=== PATIENT | female | born 1975 | race Caucasian/White ===

== ENCOUNTER 2017-08-30 22:56 | Emergency (ER) | payer OTHER, SELFPAY ==
[2017-08-31] MEDS ORDERED: HYDROcodone/Acetaminophen 10/325 mg Tablet ONE (00:31)
[2017-08-31] MEDS ORDERED: AMOXicillin 250 MG CAP ONE (00:31)
[2017-08-31] MEDS ORDERED: cefTRIAXone\\ROCEPHIN 1 GM VIAL ONE (00:31)
[2017-08-31] MEDS ORDERED: Phenergan/Codeine 10-6.25mg/5ml UDCUP ONE (00:31)
[2017-08-31] MEDS ORDERED: diphenhydrAMINE 25 MG CAP ONE (00:31)
== END 2017-08-31 00:50 | disposition home or self-care (01) ==
LOC: MADERS 22:56
DX: J20.9 Acute bronchitis, unspecified (principal); F17.210 Nicotine dependence, cigarettes, uncomplicated
CPT/HCPCS: 96372; J0696; J2001

== ENCOUNTER 2017-09-04 09:11 | Emergency (ER) | payer SELFPAY | END 2017-09-04 09:30 | disposition home or self-care (01) | LOC: MADERS 09:11 | DX: J01.90 Acute sinusitis, unspecified (principal); F17.210 Nicotine dependence, cigarettes, uncomplicated | CPT/HCPCS: 99283 ==

== ENCOUNTER 2017-10-22 19:44 | Emergency (ER) | payer SELFPAY ==
--- NOTE | 2017-10-22 21:26 | RAD ---
RADIOGRAPH RIGHT ANKLE 3 VIEWS: DATE: 10/22/17 TIME: 8:39 p.m. HISTORY: 42-year-old female with nontraumatic pain and swelling of the right ankle and foot of unknown cause. FINDINGS: There is diffuse soft tissue edema of the ankle, especially medially. Ankle mortise is symmetrical. T alar dome is maintained. No high grade DJD. No fracture or dislocation. There is no permeative lesion . There is no periosteal elevation. IMPRESSION: 1. Soft tissue edema of the ankle. 2. No destructive osseous lesion. POS: [facility]
[2017-10-22] MEDS ORDERED: traMADol HCl 50 MG TAB ONE (21:28)
== END 2017-10-22 21:34 | disposition home or self-care (01) ==
LOC: MADERS 19:44
DX: S90.31XA Contusion of right foot, initial encounter (principal); F17.210 Nicotine dependence, cigarettes, uncomplicated; W20.8XXA Other cause of strike by thrown, projected or falling object, initial encounter

== ENCOUNTER 2018-01-11 13:02 | Emergency (ER) | payer SELFPAY ==
[~2018-01-11 13:02] MED LIST: Donnatal Elixir 16.2 MG/5 ML UDCUP ONE; Iopamidol 370 76% 100 ML VIAL ONE; Sodium Chloride 0.9% 1,000 ML BAG ONE
[2018-01-11] MEDS ORDERED: Ondansetron HCl/PF 4 MG/2 ML Vial ONE ×2 (14:09→18:35)
[2018-01-11] MEDS ORDERED: Morphine 10 MG/ML VIAL ONE (14:09)
[2018-01-11 14:17] LABS: #Basophils 0.1 thou/uL (0.0-0.2); #Eosinphils 0.2 thou/uL (0.0-0.7); #Lymphocytes 0.8 thou/uL (1.20-3.40); #Monocytes 0.5 thou/uL (0.11-0.59); #Neutrophils 12.6 thou/uL (1.40-6.50); %Basophils 0.4 % (0.0-1.0); %Eosinophils 1.7 % (0.0-10.0); %Lymphocytes 5.8 % (21.0-51.0); %Monocytes 3.5 % (0.0-10.0); %Neutrophils 88.5 % (42.0-75.0); Hemoglobin 13.7 g/dL (12.0-16.0); Mean Corpuscular HGB CONC 32.2 g/dL (32.0-36.0); Mean Corpuscular Hemoglobin 26.5 pg (27.0-31.0); Mean Corpuscular Volume 82.4 fL (78.0-98.0); Mean Platelet Volume 8.2 fL (7.4-10.4); Platelet Count 231 thou/uL (130-400); RBC Distribution Width 15.2 % (11.5-14.5); Red Blood Cell (RBC) Count 5.17 mill/uL (4.20-5.40); White Blood Cell (WBC) Count 14.3 thou/uL (4.8-10.8)
[2018-01-11 14:26] LABS: BHCG - Serum Negative (NEGATIVE); Pregs Control Background? CLEAR/WHITE (CLR/WHITE); Pregs Control Bar Appear? YES (CONTROL BAR)
[2018-01-11 14:27] LABS: Bilirubin Negative (Negative); Blood, Urine Trace (Negative); Clarity Clear (Clear); Glucose, Urine (Dipstick) Negative (Negative); Leukocyte Negative (Negative); Nitrite Negative (Negative); Protein, Urine (Dipstick) Trace mg/dL (Neg-Trace); Specific Gravity, Urine 1.025 (1.005-1.030); Urobilinogen 0.2 mg/dL (0.2-1.0); pH, Urine 5.5 (5.0-9.0)
[2018-01-11 14:31] LABS: Bacteria/HPF Rare-Few HPF (None Seen); RBC/HPF 0-3 HPF (0-3); WBC/HPF 0-3 HPF (0-3)
[2018-01-11 14:35] LABS: ALT (SGPT) 17 U/L (8-55); AST (SGOT) 14 U/L (5-34); Albumin 4.1 g/dL (3.5-5.0); Alkaline Phosphatase 87 U/L (40-150); Anion Gap 19 mmol/L (10-20); BUN (Urea Nitrogen) 14 mg/dL (7.0-18.7); Bilirubin, Total 0.4 mg/dL (0.2-1.2); Calc. Creatinine Clearance 0 mL/min (70-130); Carbon Dioxide 13 mmol/L (22-29); Chloride 108 mmol/L (98-107); Estimated GFR-MDRD 73; Globulin 3.4 g/dL (2.4-3.5); Glucose 97 mg/dL (70-105); Lipase 28 U/L (8-78); Potassium 4.6 mmol/L (3.5-5.1); Protein, Total 7.5 g/dL (6.0-8.3); Sodium 135 mmol/L (136-145)
--- NOTE | 2018-01-11 15:22 | ULT ---
ULTRASOUND GALLBLADDER RIGHT UPPER QUADRANT: Date: 01/11/18 HISTORY: Epigastric pain. COMPARISON: CT from 2010. TECHNIQUE: Real-time Pham scale and color evaluation of the right upper quadrant of the abdomen performed. FINDINGS: Pancreas is poorly seen. Visualized portion of the aorta is unremarkable. Increased hepatic echotextu re. Common bile duct is normal, measuring less than 3.0 mm. Gallbladder wall thickness is normal. No peggy cholecystic fluid. No cholelithiasis. IMPRESSION: 1. No gallbladder pathology. 2. Prior right nephrectomy. 3. Increased hepatic echotexture suggesting steatosis. POS: [facility]
[2018-01-11] MEDS ORDERED: Morphine 4 MG/ML VIAL ONE ×2 (16:09→18:35)
[2018-01-11 17:08] LABS: pH (venous) 7.2 (7.32-7.43)
[2018-01-11 17:09] LABS: Base Excess 8.5 mEq/L (-2.0 to +3.0); Hemoglobin (Hb) 13.1 g/dL (11.7-15.5)
--- NOTE | 2018-01-11 17:16 | CT ---
CT ABDOMEN AND PELVIS WITH IV CONTRAST: INDICATIONS: History of epigastric abdominal pain. COMPARISON: Prior CT abdomen and pelvis without contrast, dated 04/22/2011. FINDINGS: The lung bases are clear. There is an area of focal fatty infiltration suspected near the falciform ligament. No additional fo grisel hepatic lesion is evident. The spleen is enlarged, measuring 15.2 cm. This is slightly more prominent than seen on the comparis on examination. The right kidney is surgically absent. The right adrenal gland reveals no definite acute abnormality. There is a small adrenal myelolipoma involving the medial limb of the left adrena l gland, measuring 8 mm. The left kidney is normal appearing. There is suggested wall thickening involving the distal gastric antrum, which may be related to under -distention. There are numerous fluid-filled loops of nondilated small bowel in the abdomen. There is a normal ap pendix in the right lower quadrant. There is fluid present within the region of the colon, which can be seen with diarrheal states. There is a peripherally enhancing follicle within the left adnexa, likely reflecting a involuting fol licle. The bladder, rectum, and perirectal soft tissues are unremarkable. No definite acute osseous abnormality is evident. IMPRESSION: 1. Some mild wall thickening involving the distal gastric antrum can be seen with gastritis. This c ould be related to peptic ulcer disease. Other etiologies, such as irritable bowel disease, felt to be less likely. There is nonspecific fluid distention of loops of small and large bowel, which can be seen with Enter ocolitis. 2. Small focal area of fatty infiltration near the falciform ligament. 3. Worsening mild splenomegaly. 4. Myelolipoma of the left adrenal gland, measuring 8 mm. 5. Right nephrectomy. 6. Involuting cyst in the left adnexa, measuring 1 cm. POS: [facility]
[2018-01-11 17:41] LABS: Anion Gap 18 mmol/L (10-20); BUN (Urea Nitrogen) 12 mg/dL (7.0-18.7); Calc. Creatinine Clearance 0 mL/min (70-130); Calcium 7.9 mg/dL (7.8-10.44); Carbon Dioxide 16 mmol/L (22-29); Chloride 110 mmol/L (98-107); Estimated GFR-MDRD 83; Glucose 87 mg/dL (70-105); Potassium 4.8 mmol/L (3.5-5.1); Sodium 139 mmol/L (136-145)
[2018-01-11] MEDS ORDERED: Donnatal Elixir 16.2 MG/5 ML UDCUP ONE (18:35)
[2018-01-11] MEDS ORDERED: Mag-Al Plus 1200 MG/1200 MG/120 MG/30 ML UDCUP ONE (18:36)
[2018-01-11] MEDS ORDERED: Lidocaine Viscous Sol 2% 15 ml UD Cup ONE (18:36)
== END 2018-01-11 19:40 | disposition short-term general hospital (02) ==
LOC: MADERS 13:02
DX: E87.2 Acidosis (principal); J45.909 Unspecified asthma, uncomplicated; F17.210 Nicotine dependence, cigarettes, uncomplicated
CPT/HCPCS: 74177; 76705; 80053; 81003; 81015; 82805; 83605; 83690; 84703; 85025; 96361; 96374; 96375; 96376; J2270; J2405; J7050

== ENCOUNTER 2018-07-21 12:52 | Emergency (ER) | payer SELFPAY, OTHER ==
[2018-07-21 14:21] LABS: #Basophils 0.1 thou/uL (0.0-0.2); #Eosinphils 0.4 thou/uL (0.0-0.7); #Lymphocytes 3.4 thou/uL (1.20-3.40); #Monocytes 0.5 thou/uL (0.11-0.59); #Neutrophils 7.3 thou/uL (1.40-6.50); %Basophils 0.9 % (0.0-1.0); %Eosinophils 3.7 % (0.0-10.0); %Lymphocytes 28.8 % (21.0-51.0); %Monocytes 4.3 % (0.0-10.0); %Neutrophils 62.4 % (42.0-75.0); Hemoglobin 13.4 g/dL (12.0-16.0); Mean Corpuscular HGB CONC 31.4 g/dL (32.0-36.0); Mean Corpuscular Hemoglobin 26.9 pg (27.0-31.0); Mean Corpuscular Volume 85.9 fL (78.0-98.0); Mean Platelet Volume 8.8 fL (7.4-10.4); Platelet Count 270 thou/uL (130-400); RBC Distribution Width 15.3 % (11.5-14.5); Red Blood Cell (RBC) Count 4.99 mill/uL (4.20-5.40); White Blood Cell (WBC) Count 11.7 thou/uL (4.8-10.8)
[2018-07-21 14:26] LABS: Bilirubin Negative (Negative); Blood, Urine Trace (Negative); Clarity Clear (Clear); Glucose, Urine (Dipstick) Negative (Negative); Leukocyte Negative (Negative); Nitrite Negative (Negative); Protein, Urine (Dipstick) Negative (Neg-Trace); RBC/HPF 0-3 HPF (0-3); Specific Gravity, Urine 1.025 (1.005-1.030); Urobilinogen 0.2 mg/dL (0.2-1.0); WBC/HPF 0-3 HPF (0-3); pH, Urine 5.5 (5.0-9.0)
[2018-07-21 14:27] LABS: Bacteria/HPF Rare-Few HPF (None Seen); Squamous Epithelial 0-3 HPF (0-3)
[2018-07-21 14:34] LABS: BHCG - Serum Negative (NEGATIVE); Pregs Control Background? CLEAR/WHITE (CLR/WHITE); Pregs Control Bar Appear? YES (CONTROL BAR)
[2018-07-21 14:36] LABS: ALT (SGPT) 18 U/L (8-55); AST (SGOT) 11 U/L (5-34); Albumin 4.1 g/dL (3.5-5.0); Alkaline Phosphatase 99 U/L (40-150); Anion Gap 14 mmol/L (10-20); BUN (Urea Nitrogen) 11 mg/dL (7.0-18.7); Bilirubin, Total 0.2 mg/dL (0.2-1.2); Calc. Creatinine Clearance 0 mL/min (70-130); Calcium 9.3 mg/dL (7.8-10.44); Carbon Dioxide 23 mmol/L (22-29); Chloride 107 mmol/L (98-107); Estimated GFR-MDRD 81; Globulin 3.5 g/dL (2.4-3.5); Glucose 85 mg/dL (70-105); Lipase 29 U/L (8-78); Potassium 4.1 mmol/L (3.5-5.1); Protein, Total 7.6 g/dL (6.0-8.3); Sodium 140 mmol/L (136-145)
[2018-07-21] MEDS ORDERED: HYDROcodone/Acetaminophen 5/325 mg Tablet ONE (15:55)
== END 2018-07-21 16:06 | disposition home or self-care (01) ==
LOC: MADERS 12:52
DX: M54.9 Dorsalgia, unspecified (principal); R10.32 Left lower quadrant pain; F17.210 Nicotine dependence, cigarettes, uncomplicated; J45.909 Unspecified asthma, uncomplicated
CPT/HCPCS: 36415; 80053; 81003; 81015; 83690; 84703; 85025; 99283

== ENCOUNTER 2018-07-30 10:14 | Emergency (ER) | payer SELFPAY, OTHER ==
[2018-07-30] MEDS ORDERED: Morphine 10 MG/ML VIAL ONE (10:45)
[2018-07-30 11:03] LABS: #Basophils 0.1 thou/uL (0.0-0.2); #Eosinphils 0.4 thou/uL (0.0-0.7); #Lymphocytes 3.4 thou/uL (1.20-3.40); #Monocytes 0.6 thou/uL (0.11-0.59); #Neutrophils 11.1 thou/uL (1.40-6.50); %Basophils 0.8 % (0.0-1.0); %Eosinophils 2.4 % (0.0-10.0); %Monocytes 3.9 % (0.0-10.0); Hemoglobin 13.9 g/dL (12.0-16.0); Mean Corpuscular HGB CONC 31.2 g/dL (32.0-36.0); Mean Corpuscular Hemoglobin 26.9 pg (27.0-31.0); Mean Corpuscular Volume 86.5 fL (78.0-98.0); Mean Platelet Volume 8.9 fL (7.4-10.4); Platelet Count 333 thou/uL (130-400); RBC Distribution Width 15.4 % (11.5-14.5); Red Blood Cell (RBC) Count 5.16 mill/uL (4.20-5.40); White Blood Cell (WBC) Count 15.7 thou/uL (4.8-10.8)
[2018-07-30 11:12] LABS: Bilirubin Negative (Negative); Blood, Urine Negative (Negative); Clarity Clear (Clear); Glucose, Urine (Dipstick) Negative (Negative); Leukocyte Negative (Negative); Nitrite Negative (Negative); Protein, Urine (Dipstick) Negative (Neg-Trace); Urobilinogen 0.2 mg/dL (0.2-1.0)
[2018-07-30 11:21] LABS: ALT (SGPT) 26 U/L (8-55); AST (SGOT) 17 U/L (5-34); Alkaline Phosphatase 102 U/L (40-150); Anion Gap 18 mmol/L (10-20); BUN (Urea Nitrogen) 13 mg/dL (7.0-18.7); Bilirubin, Total 0.2 mg/dL (0.2-1.2); Calc. Creatinine Clearance 0 mL/min (70-130); Calcium 9.3 mg/dL (7.8-10.44); Carbon Dioxide 20 mmol/L (22-29); Chloride 105 mmol/L (98-107); Estimated GFR-MDRD 76; Globulin 3.6 g/dL (2.4-3.5); Glucose 116 mg/dL (70-105); Lipase 32 U/L (8-78); Protein, Total 7.6 g/dL (6.0-8.3); Sodium 139 mmol/L (136-145)
--- NOTE | 2018-07-30 11:21 | CT ---
CT OF THE ABDOMEN AND PELVIS WITHOUT CONTRAST: Date: 07/30/18 COMPARISON: 04/22/11. HISTORY: Left back and flank pain for several months. TECHNIQUE: Multiple contiguous axial images were obtained in a CT of the abdomen and pelvis without contrast. Co johana reformats were performed. FINDINGS: The right kidney is absent. No calcifications are seen in the left kidney and there is no left hydron ephrosis. The liver, gallbladder adrenal glands, spleen, and pancreas are unremarkable. No free air, free fluid, or stranding changes are seen in the abdomen or pelvis. There appears to be a 4.3 cm exophytic fibroid emanating from the uterus. A dominant follicle is seen in the right ovary, measuring 2.6 cm in size. No abdominal or pelvic lymphadenopathy seen. The large and small bowel are unremarkable. The appendix is normal. Osseous structures, visualized inferior thorax, and abdominal wall soft tissues are unremarkable. IMPRESSION: 1. No evidence of acute intra-abdominal/pelvic abnormality. 2. Uterine fibroid. POS: [facility]
[2018-07-30 11:28] LABS: BHCG - Serum Negative (NEGATIVE); Pregs Control Background? CLEAR/WHITE (CLR/WHITE); Pregs Control Bar Appear? YES (CONTROL BAR)
[2018-07-30] MEDS ORDERED: HYDROcodone/Acetaminophen 5/325 mg Tablet ONE (12:55)
== END 2018-07-30 13:00 | disposition home or self-care (01) ==
LOC: MADERS 10:14
DX: M54.40 Lumbago with sciatica, unspecified side (principal); J45.909 Unspecified asthma, uncomplicated; F17.210 Nicotine dependence, cigarettes, uncomplicated
CPT/HCPCS: 36415; 74176; 80053; 81003; 83690; 84703; 85025; 96372; J2270

== ENCOUNTER 2019-04-29 13:16 | Emergency (ER) | payer SELFPAY ==
[2019-04-29] MEDS ORDERED: traMADol HCl 50 MG TAB ONE (14:10)
[2019-04-29] MEDS ORDERED: Ibuprofen 800 MG TAB ONE (14:11)
--- NOTE | 2019-04-29 14:20 | RAD ---
,LEFT ANKLE 3 VIEWS: Date: 04/29/19 INDICATION: Injury. FINDINGS: There is a medially emanating osteophyte from the fibular tip. Mortise is intact. Calcaneal enthesoph yte formation is present, most pronounced at the plantar aspect. Mild osteophytosis is seen at the do rsal midfoot. No acute fracture or dislocation. Generalized soft tissue prominence. IMPRESSION: Chronic degenerative findings of left ankle, without acute process. POS: [facility]
== END 2019-04-29 15:27 | disposition home or self-care (01) ==
LOC: MADERS 13:16
DX: S93.402A Sprain of unspecified ligament of left ankle, initial encounter (principal); S93.602A Unspecified sprain of left foot, initial encounter; J45.909 Unspecified asthma, uncomplicated; F17.210 Nicotine dependence, cigarettes, uncomplicated; Z79.899 Other long term (current) drug therapy; W18.30XA Fall on same level, unspecified, initial encounter; Y92.009 Unspecified place in unspecified non-institutional (private) residence as the place of occurrence of the external cause

== ENCOUNTER 2019-12-18 12:05 | Emergency (ER) | payer OTHER, SELFPAY ==
[2019-12-18 13:25] LABS: Anisocytosis SLIGHT = 6-15 cells (100X) (0-5/hpf); Band 2 % (5-11); Hemoglobin 13.1 g/dL (12.0-16.0); Hypochromia SLIGHT = 6-15 cells (100X) (0-5/hpf); Lymphocytes 24 % (21-51); MDiff Complete? YES; Mean Corpuscular HGB CONC 30.8 g/dL (32.0-36.0); Mean Corpuscular Hemoglobin 25.6 pg (27.0-31.0); Mean Corpuscular Volume 82.9 fL (78.0-98.0); Mean Platelet Volume 8.4 fL (7.4-10.4); Monocytes 8 % (0-10); Neutrophil 66 % (42-75); Platelet Count 302 thou/uL (130-400); Platelet Morphology Comment Appears Adequate; RBC Distribution Width 15.9 % (11.5-14.5); Red Blood Cell (RBC) Count 5.12 mill/uL (4.20-5.40); White Blood Cell (WBC) Count 12.1 thou/uL (4.8-10.8)
--- NOTE | 2019-12-18 13:27 | RAD ---
FRONTAL RADIOGRAPH CHEST: Date: 12-18-2019 Comparison: 01-11-18 History: Shortness of breath FINDINGS: There is mild increased linear interstitial density which appears similar when compared to prior imag ing. No pneumothorax or pleural fluid. No focal consolidation or alveolar edema. IMPRESSION: Nonspecific interstitial prominence, similar when compared to prior imaging. No focal consolidation o r alveolar edema. POS: [facility]
[2019-12-18 13:31] LABS: ALT (SGPT) 13 U/L (8-55); AST (SGOT) 13 U/L (5-34); Albumin 4.3 g/dL (3.5-5.0); Alkaline Phosphatase 97 U/L (40-110); Anion Gap 18 mmol/L (10-20); BUN (Urea Nitrogen) 13 mg/dL (7.0-18.7); Bilirubin, Total 0.2 mg/dL (0.2-1.2); CK (CPK) 29 U/L (29-168); Calc. Creatinine Clearance 0 mL/min (70-130); Calcium 9.6 mg/dL (7.8-10.44); Carbon Dioxide 18 mmol/L (22-29); Chloride 108 mmol/L (98-107); Estimated GFR-MDRD 71; Glucose 104 mg/dL (70-105); Potassium 4.6 mmol/L (3.5-5.1); Protein, Total 7.3 g/dL (6.0-8.3); Sodium 139 mmol/L (136-145)
[2019-12-20 15:28] LABS: SARS-CoV-2 MS2 Positive; SARS-CoV-2 N Gene Negative; SARS-CoV-2 S Gene Negative; SARS-CoV-2 orf1ab Negative
== END 2019-12-18 14:28 | disposition home or self-care (01) ==
LOC: MADERS 12:05
DX: J20.9 Acute bronchitis, unspecified (principal); Z20.828 Contact with and (suspected) exposure to other viral communicable diseases; F41.9 Anxiety disorder, unspecified; F43.0 Acute stress reaction; R06.4 Hyperventilation; J45.909 Unspecified asthma, uncomplicated; F17.210 Nicotine dependence, cigarettes, uncomplicated
CPT/HCPCS: 71045; 80053; 82550; 84484; 85025; 85379; 87635; 93005; U0003

== ENCOUNTER 2020-02-26 13:17 | Emergency (ER) | payer SELFPAY ==
[2020-02-26] MEDS ORDERED: Ketorolac Tromethamine 30 MG/ML VIAL ONE (14:02)
[2020-02-26] MEDS ORDERED: Sodium Chloride 0.9% 1,000 ML ONE (14:02)
[2020-02-26 14:19] LABS: Bilirubin Negative (Negative); Blood, Urine Negative (Negative); Clarity Clear (Clear); Glucose, Urine (Dipstick) Negative (Negative); Ketone, Urine Negative (Negative); Leukocyte Negative (Negative); Nitrite Negative (Negative); Protein, Urine (Dipstick) Negative (Neg-Trace); Specific Gravity, Urine 1.025 (1.005-1.030); Urobilinogen 0.2 mg/dL (Less than 2)
[2020-02-26 14:22] LABS: #Basophils 0.1 thou/uL (0.0-0.2); #Eosinphils 0.4 thou/uL (0.0-0.7); #Lymphocytes 2.9 thou/uL (1.20-3.40); #Monocytes 0.7 thou/uL (0.11-0.59); #Neutrophils 6.8 thou/uL (1.40-6.50); %Basophils 1.1 % (0.0-1.0); %Eosinophils 3.5 % (0.0-10.0); %Lymphocytes 26.5 % (21.0-51.0); %Monocytes 6.1 % (0.0-10.0); %Neutrophils 62.9 % (42.0-75.0); Hemoglobin 11.4 g/dL (12.0-16.0); Mean Corpuscular HGB CONC 32.8 g/dL (32.0-36.0); Mean Corpuscular Hemoglobin 26.2 pg (27.0-31.0); Mean Corpuscular Volume 79.7 fL (78.0-98.0); Platelet Count 277 thou/uL (130-400); RBC Distribution Width 14.8 % (11.5-14.5); Red Blood Cell (RBC) Count 4.35 mill/uL (4.20-5.40); White Blood Cell (WBC) Count 10.8 thou/uL (4.8-10.8)
[2020-02-26 14:36] LABS: ALT (SGPT) 17 U/L (8-55); AST (SGOT) 10 U/L (5-34); Albumin 3.9 g/dL (3.5-5.0); Alkaline Phosphatase 83 U/L (40-110); Anion Gap 13 mmol/L (10-20); BUN (Urea Nitrogen) 15 mg/dL (7.0-18.7); Bilirubin, Total 0.2 mg/dL (0.2-1.2); Calc. Creatinine Clearance 0 mL/min (70-130); Calcium 8.8 mg/dL (7.8-10.44); Carbon Dioxide 21 mmol/L (22-29); Chloride 110 mmol/L (98-107); Estimated GFR-MDRD 81; Globulin 2.7 g/dL (2.4-3.5); Glucose 85 mg/dL (70-105); Potassium 3.9 mmol/L (3.5-5.1); Protein, Total 6.6 g/dL (6.0-8.3); Sodium 140 mmol/L (136-145)
--- NOTE | 2020-02-26 15:48 | CT ---
CT ABDOMEN AND PELVIS WITHOUT CONTRAST: History: Left flank pain. Comparison: 07-30-2018 Disclaimer: Absence of oral and IV contrast reduces the sensitivity of the exam particularly for eval uation of solid organs and bowel. FINDINGS: Lung bases are clear. No free air or free fluid is seen in the abdomen or pelvis. No calcified gallst ones are noted. The patient is status post right nephrectomy. Small bowel loops are not abnormally di lated. The appendix is normal. No calculi are seen in the left kidney, left ureter, or urinary bladder. No left sided hydroureterone phrosis is seen. Uterus and ovaries are present. There is no evidence of dilatation of the abdominal aorta. Vascular calcifications are present. Osseous structures are unremarkable. IMPRESSION: No definite acute process is seen within the limitations of absence of contrast. POS: [facility]
== END 2020-02-26 15:45 | disposition home or self-care (01) ==
LOC: MADERS 13:17
DX: R10.9 Unspecified abdominal pain (principal); Z71.6 Tobacco abuse counseling; R30.0 Dysuria; M54.6 Pain in thoracic spine; M54.5 Low back pain; J45.909 Unspecified asthma, uncomplicated; F17.210 Nicotine dependence, cigarettes, uncomplicated; Z79.899 Other long term (current) drug therapy
CPT/HCPCS: 74176; 80053; 81003; 85025; 96361; 96374; 99406; J1885; J7050

== ENCOUNTER 2020-03-21 12:55 | Emergency (ER) | payer OTHER, SELFPAY ==
[2020-03-22 11:55] LABS: SARS-CoV-2 MS2 Positive; SARS-CoV-2 N Gene Negative; SARS-CoV-2 S Gene Negative; SARS-CoV-2 by NAA Not Detected (NotDetected); SARS-CoV-2 orf1ab Negative
== END 2020-03-21 14:00 | disposition home or self-care (01) ==
LOC: MADERS 12:55
DX: B34.9 Viral infection, unspecified (principal); Z20.828 Contact with and (suspected) exposure to other viral communicable diseases; J45.909 Unspecified asthma, uncomplicated; F17.210 Nicotine dependence, cigarettes, uncomplicated; Z79.899 Other long term (current) drug therapy
CPT/HCPCS: 87635; 99283; U0003

== ENCOUNTER 2020-05-02 10:30 | Emergency (ER) | payer BC, SELFPAY ==
[2020-05-02] MEDS ORDERED: Ibuprofen 800 MG TAB ONE (10:55)
[2020-05-02] MEDS ORDERED: Acetaminophen 500 MG TAB ONE (10:55)
--- NOTE | 2020-05-02 11:24 | RAD ---
LEFT ANKLE 3 VIEWS: HISTORY: Inversion injury, left ankle pain. COMPARISON: 04/29/2019. FINDINGS: The ankle mortise is maintained. No acute fracture or dislocation or bony destruction is seen. Post erior and plantar calcaneal spurs are again seen. A small osteophyte arising from the medial aspect of the fibular tip is redemonstrated. IMPRESSION: No acute process. POS: [facility]
--- NOTE | 2020-05-02 11:25 | RAD ---
LEFT FOOT 3 VIEW: HISTORY: Inversion injury, left foot pain. FINDINGS/IMPRESSION: No acute fracture or dislocation is seen. Calcaneal spurs are present. POS: [facility]
== END 2020-05-02 11:40 | disposition home or self-care (01) ==
LOC: MADERS 10:30
DX: S93.402A Sprain of unspecified ligament of left ankle, initial encounter (principal); J45.909 Unspecified asthma, uncomplicated; F17.210 Nicotine dependence, cigarettes, uncomplicated; Z79.82 Long term (current) use of aspirin; Z79.899 Other long term (current) drug therapy; W10.9XXA Fall (on) (from) unspecified stairs and steps, initial encounter

== ENCOUNTER 2020-09-06 17:21 | Emergency (ER) | payer BC, OTHER ==
[2020-09-06] MEDS ORDERED: Ketorolac Tromethamine 30 MG/ML VIAL ONE (18:01)
[2020-09-06] MEDS ORDERED: Cyclobenzaprine 10 MG TAB ONE (18:01)
[2020-09-06] MEDS ORDERED: Ondansetron ODT 4 MG TAB ONE (18:01)
== END 2020-09-06 19:24 | disposition home or self-care (01) ==
LOC: MADERS 17:21
DX: M62.830 Muscle spasm of back (principal); J45.909 Unspecified asthma, uncomplicated; F17.210 Nicotine dependence, cigarettes, uncomplicated; Z79.899 Other long term (current) drug therapy
CPT/HCPCS: 96372; 99283; J1885; Q0162

== ENCOUNTER 2021-05-27 17:03 | Emergency (ER) | payer SELFPAY ==
[2021-05-27 18:06] LABS: #Basophils 0.1 thou/uL (0.0-0.2); #Eosinphils 0.2 thou/uL (0.0-0.7); #Lymphocytes 2.7 thou/uL (1.20-3.40); #Monocytes 0.6 thou/uL (0.11-0.59); #Neutrophils 7.2 thou/uL (1.40-6.50); %Basophils 1.1 % (0.0-1.0); %Eosinophils 1.7 % (0.0-10.0); %Lymphocytes 24.8 % (21.0-51.0); %Monocytes 5.5 % (0.0-10.0); %Neutrophils 66.9 % (42.0-75.0); Hemoglobin 11.9 g/dL (12.0-16.0); Mean Corpuscular HGB CONC 31.8 g/dL (32.0-36.0); Mean Corpuscular Hemoglobin 26.3 pg (27.0-31.0); Mean Corpuscular Volume 82.7 fL (78.0-98.0); Mean Platelet Volume 8.8 fL (7.4-10.4); Platelet Count 232 thou/uL (130-400); RBC Distribution Width 15.7 % (11.5-14.5); Red Blood Cell (RBC) Count 4.52 mill/uL (4.20-5.40); White Blood Cell (WBC) Count 10.7 thou/uL (4.8-10.8)
[2021-05-27 18:20] LABS: ALT (SGPT) 17 U/L (8-55); AST (SGOT) 11 U/L (5-34); Alkaline Phosphatase 99 U/L (40-110); Anion Gap 14 mmol/L (10-20); BUN (Urea Nitrogen) 11 mg/dL (7.0-18.7); Bilirubin, Total 0.3 mg/dL (0.2-1.2); CK (CPK) 39 U/L (29-168); Calc. Creatinine Clearance 0 mL/min (70-130); Calcium 9.8 mg/dL (7.8-10.44); Carbon Dioxide 26 mmol/L (22-29); Chloride 104 mmol/L (98-107); Globulin 2.8 g/dL (2.4-3.5); Glucose 89 mg/dL (70-105); Potassium 3.4 mmol/L (3.5-5.1); Protein, Total 6.8 g/dL (6.0-8.3); Sodium 141 mmol/L (136-145)
== END 2021-05-27 19:32 | disposition home or self-care (01) ==
LOC: MADERS 17:03
DX: R07.89 Other chest pain (principal); F43.0 Acute stress reaction; R00.2 Palpitations; E78.5 Hyperlipidemia, unspecified; E78.00 Pure hypercholesterolemia, unspecified; M19.90 Unspecified osteoarthritis, unspecified site; J45.909 Unspecified asthma, uncomplicated; N83.202 Unspecified ovarian cyst, left side; F17.210 Nicotine dependence, cigarettes, uncomplicated; E66.9 Obesity, unspecified; Z68.45 Body mass index [BMI] 70 or greater, adult
CPT/HCPCS: 36415; 71045; 80053; 82550; 84484; 85025; 93005; 94760

== ENCOUNTER 2021-12-11 22:52 | Emergency (ER) | payer OTHER, BC ==
[2021-12-11] MEDS ORDERED: Ketorolac Tromethamine 30 MG/ML VIAL ONE (23:24)
== END 2021-12-11 23:43 | disposition home or self-care (01) ==
LOC: MADERS 22:52
DX: M25.512 Pain in left shoulder (principal); F17.210 Nicotine dependence, cigarettes, uncomplicated; E78.5 Hyperlipidemia, unspecified; E78.00 Pure hypercholesterolemia, unspecified; E66.9 Obesity, unspecified; J44.9 Chronic obstructive pulmonary disease, unspecified; Z79.899 Other long term (current) drug therapy; Z79.82 Long term (current) use of aspirin
CPT/HCPCS: 96372; 99283; J1885

== ENCOUNTER 2022-10-27 21:32 | Emergency (ER) | payer OTHER, SELFPAY ==
[~2022-10-27 21:32] MED LIST changes: -Donnatal Elixir 16.2 MG/5 ML UDCUP ONE; -Sodium Chloride 0.9% 1,000 ML BAG ONE
[2022-10-27 22:37] LABS: Bilirubin Negative (Negative); Blood, Urine Trace (Negative); Clarity Hazy (Clear); Glucose, Urine (Dipstick) Negative (Negative); Ketone, Urine Negative (Negative); Leukocyte Negative (Negative); Nitrite Negative (Negative); Protein, Urine (Dipstick) Trace mg/dL (Neg-Trace); Specific Gravity, Urine 1.027 (1.002-1.036); Urobilinogen 0.2 mg/dL (Less than 2); pH, Urine 5.5 (5.0-9.0)
[2022-10-27 22:38] LABS: Bacteria/HPF Rare-Few HPF (None Seen); Mucous/LPF 1+ LPF (<2+); RBC/HPF 0-3 HPF (0-3); Squamous Epithelial 0-3 HPF (0-3)
[2022-10-27] MEDS ORDERED: Famotidine/PF 20 mg/2ml Vial ONE (22:44)
[2022-10-27] MEDS ORDERED: Lactated Ringer's 1,000 ML ONE (22:44)
[2022-10-27 22:45] LABS: #Basophils 0.1 thou/uL (0.0-0.2); #Eosinphils 0.3 thou/uL (0.0-0.7); #Monocytes 0.7 thou/uL (0.11-0.59); #Neutrophils 9.9 thou/uL (1.40-6.50); %Basophils 0.8 % (0.0-1.0); %Eosinophils 1.9 % (0.0-10.0); %Lymphocytes 21.6 % (21.0-51.0); %Monocytes 4.9 % (0.0-10.0); %Neutrophils 70.7 % (42.0-75.0); Hemoglobin 14.8 g/dL (12.0-16.0); Mean Corpuscular HGB CONC 32.1 g/dL (32.0-36.0); Mean Corpuscular Hemoglobin 26.7 pg (27.0-31.0); Mean Platelet Volume 10.6 fL (7.4-10.4); Platelet Count 305 10x3/uL (130-400); RBC Distribution Width 15.8 % (11.5-14.5); Red Blood Cell (RBC) Count 5.54 mill/uL (4.20-5.40)
[2022-10-27] MEDS ORDERED: Metoclopramide HCl 10 MG/2 ML VIAL ONE (22:45)
[2022-10-27 23:05] LABS: ALT (SGPT) 13 U/L (8-55); AST (SGOT) 16 U/L (5-34); Albumin 4.4 g/dL (3.5-5.0); Alkaline Phosphatase 85 U/L (40-110); Anion Gap 17 mmol/L (10-20); BUN (Urea Nitrogen) 17 mg/dL (7.0-18.7); Bilirubin, Total 0.2 mg/dL (0.2-1.2); Calc. Creatinine Clearance 0 mL/min (70-130); Calcium 9.7 mg/dL (7.8-10.44); Carbon Dioxide 19 mmol/L (22-29); Chloride 104 mmol/L (98-107); Estimated GFR 75; Globulin 3.4 g/dL (2.4-3.5); Glucose 113 mg/dL (70-105); Lipase 28 U/L (8-78); Magnesium 1.9 mg/dL (1.6-2.6); Potassium 4.3 mmol/L (3.5-5.1); Protein, Total 7.8 g/dL (6.0-8.3); Sodium 136 mmol/L (136-145)
[2022-10-27] MEDS ORDERED: Dicyclomine 20 MG/2 ML VIAL ONE (23:36)
== END 2022-10-28 00:27 | disposition home or self-care (01) ==
LOC: MADERS 21:32
DX: R10.13 Epigastric pain (principal); E66.9 Obesity, unspecified; J45.909 Unspecified asthma, uncomplicated; Z79.899 Other long term (current) drug therapy; F17.210 Nicotine dependence, cigarettes, uncomplicated
CPT/HCPCS: 74177; 80053; 81003; 81015; 83605; 83690; 83735; 85025; 93005; 94760; 96361; 96372; 96374; 96375; J2765; J7120; Q9967; S0028